=== PATIENT | male | born 1975 | race Caucasian/White ===

== ENCOUNTER 2020-11-21 07:00 | Outpatient (NON) | payer BC, SELFPAY ==
[2020-11-21 18:46] LABS: SARS-CoV-2 RNA PCR Positive
== END 2020-11-21 07:01 ==
PROVIDERS: PCP Internal Medicine; Visit Provider Internal Medicine
DX: U07.1 COVID-19 (principal); R68.89 Other general symptoms and signs
CPT/HCPCS: C9803; U0003; U0005

== ENCOUNTER 2021-02-23 07:19 | Outpatient (CLI) | payer BC, SELFPAY ==
--- NOTE | ~2021-02-23 | XR_ITS ---
XR knee LT 3V DATE: 02/23/2021 07:44 INDICATION: Chronic medial left knee pain TECHNIQUE: AP, lateral and sunrise views COMPARISON: None FINDINGS: There is slight periarticular spurring of the patella. Knee joint spaces are preserved. No fracture or dislocation or joint effusion. No periosteal reaction or bone destruction, radial opaq ue intra-articular loose body or chondrocalcinosis. IMPRESSION: Slight periarticular spurring of the patella consistent with minimal patellofemoral osteo arthritis Reviewed, dictated and finalized at location A. IMPRESSION: Slight periarticular spurring of the patella consistent with minima l patellofemoral osteoarthritis
--- NOTE | ~2021-02-23 | MR_ITS ---
EXAMINATION: MR knee RT wo con DATE: 02/23/2021 09:13 INDICATION: Right knee pain TECHNIQUE: Magnetic resonance imaging (MRI) of the right knee was performed without intravenous contr ast. Sequences included coronal PD-weighted FSE, coronal PD-weighted FS FSE, sagittal T2-weighted FS E, sagittal PD-weighted FS FSE and axial PD weighted fat saturated FSE. COMPARISON: None. FINDINGS: Medial compartment: Medial meniscus is normal. Articular cartilage is normal. Lateral compartment: Lateral meniscus is normal. Articular cartilage is normal. Patellofemoral compartment: Articular cartilage is normal. Ligaments and tendons: Anterior and posterior cruciate ligaments are normal. The medial collateral ligament and fibular enrique ateral ligament complex are normal. The extensor mechanism is normal. The visualized medial and later al hamstring tendons as well as the iliotibial band are normal. Fluid: Physiologic amount of fluid in the joint space. No loose osteochondral bodies identified. Mild edema in the subcutaneous fat anterior to the patella and patellar tendon without discrete bursal fluid col lection. Osseous/other: No fracture. A couple small low signal intensity bone islands at the lateral femoral condyle. 5 mm le oz also at the lateral femoral condyle with lobular margins and isointense to cartilage most consis tent with a small enchondroma. Otherwise normal marrow signal. IMPRESSION: 1. No internal derangement with normal menisci, cartilage and stabilizing ligaments of the knee. 2. Nonspecific prepatellar edema without discrete bursal fluid collection. Reviewed, dictated and finalized at location A. IMPRESSION: 1. No internal derangement with normal menisci, cartilage and stabilizing ligam ents of the knee. 2. Nonspecific prepatellar edema without discrete bursal fluid collection.
== END 2021-02-23 07:20 | disposition home or self-care (01) ==
PROVIDERS: PCP Family Medicine; Visit Provider Physician Assistant Medical
DX: M25.562 Pain in left knee (principal); M25.561 Pain in right knee; G89.29 Other chronic pain
CPT/HCPCS: 73562; 73721

== ENCOUNTER 2021-03-03 13:02 | Outpatient (CLI) | payer BC, SELFPAY ==
--- NOTE | 2021-03-03 15:00 | NEURO_ITS ---
Impression: # Complains of pain in right forearm. # Right Carpal Tunnel Syndrome. # Evolving left Carpal Tunnel Syndrome. # No ulnar neuropathy. # Normal needle/EMG exam. Nerve Conduction Studies Anti Sensory Summary Table Stim Site NR Peak (ms) P-T Amp (?V) Site1 Site2 Delta-P (ms) Dist (cm) Odilon (m/s) Left Median Anti Sensory (2-3nd Digit) Wrist 3.4 42.9 Wrist 2-3nd Digit 3.4 14.0 41 Wrist 3.6 20.2 Wrist 2-3nd Digit 3.4 14.0 41 Right Median Anti Sensory (2-3nd Digit) Wrist 3.8 15.5 Wrist 2-3nd Digit 3.8 14.0 37 Wrist 3.8 20.8 Wrist 2-3nd Digit 3.8 14.0 37 Left Radial Anti Sensory (Base 1st Digit) Wrist 2.1 14.2 Wrist Base 1st Digit 2.1 0.0 Right Radial Anti Sensory (Base 1st Digit) Wrist 3.0 13.7 Wrist Base 1st Digit 3.0 0.0 Left Ulnar Anti Sensory (5th Digit) Wrist 3.1 25.6 Wrist 5th Digit 3.1 14.0 45 Right Ulnar Anti Sensory (5th Digit) Wrist 2.8 24.2 Wrist 5th Digit 2.8 14.0 50 Motor Summary Table Stim Site NR Onset (ms) O-P Amp (mV) Site1 Site2 Delta-0 (ms) Dist (cm) Odilon (m/s) Left Median Motor (Abd Poll Brev) Wrist 3.9 2.9 Elbow Wrist 5.3 31.0 58 Elbow 9.2 2.6 Right Median Motor (Abd Poll Brev) Wrist 4.3 1.6 Elbow Wrist 5.4 31.0 57 Elbow 9.7 3.3 Left Ulnar Motor (Abd Dig Minimi) Wrist 2.5 4.7 A Elbow Wrist 5.2 30.0 58 A Elbow 7.7 4.3 Right Ulnar Motor (Abd Dig Minimi) Wrist 2.9 4.0 A Elbow Wrist 5.7 33.0 58 A Elbow 8.6 3.3 F Wave Studies NR F-Lat (ms) L-R F-Lat (ms) Left Median (Mrkrs) (Abd Poll Brev) 29.84 1.27 Right Median (Mrkrs) (Abd Poll Brev) 31.11 1.27 Left Ulnar (Mrkrs) (Abd Dig Min) 30.67 0.58 Right Ulnar (Mrkrs) (Abd Dig Min) 31.25 0.58 EMG Side Muscle Nerve Root Ins Act Fibs Amp Dur Recrt Comment Right 1stDorInt Ulnar C8-T1 Nml Nml Nml Nml Nml Right Ext Indicis Radial (Post Int) C7-8 Nml Nml Nml Nml Nml Right Ext Digitorum Radial (Post Int) C7-8 Nml Nml Nml Nml Nml Right BrachioRad Radial C5-6 Nml Nml Nml Nml Nml Right PronatorTeres Median C6-7 Nml Nml Nml Nml Nml Right Abd Poll Brev Median C8-T1 Nml Nml Nml Nml Nml Left 1stDorInt Ulnar C8-T1 Nml Nml Nml Nml Nml Left Ext Indicis Radial (Post Int) C7-8 Nml Nml Nml Nml Nml Left Ext Digitorum Radial (Post Int) C7-8 Nml Nml Nml Nml Nml Left BrachioRad Radial C5-6 Nml Nml Nml Nml Nml Left PronatorTeres Median C6-7 Nml Nml Nml Nml Nml Left Abd Poll Brev Median C8-T1 Nml Nml Nml Nml Nml MTDD
== END 2021-03-03 13:03 | disposition home or self-care (01) ==
PROVIDERS: PCP Family Medicine; Visit Provider Physician Assistant Medical
DX: R20.2 Paresthesia of skin (principal); G56.03 Carpal tunnel syndrome, bilateral upper limbs
CPT/HCPCS: 95886; 95911

== ENCOUNTER 2022-10-17 12:26 | Outpatient (CLI) | payer BC, SELFPAY ==
--- NOTE | 2022-10-17 13:03 | ECG_ITS ---
Measurements Intervals [place] Rate: 78 P: 59 GA: 199 QRS: -17 QRSD: 106 T: 47 QT: 363 QTc: 416 Interpretive Statements SINUS RHYTHM BORDERLINE LEFTWARD AXIS OTHERWISE UNREMARKABLE ECG NO PREVIOUS ECG AVAILABLE FOR COMPARISON Electronically Signed On 10-17-2022 15:15:44 [employer]UR[employer] PROCESS SUPERVISOR by Shawn Torres M.D.
[2022-10-17 13:07] LABS: Anion Gap 4 mmol/L (8-16); Blood Urea Nitrogen 13 mg/dL (9-20); Calcium 9.1 mg/dL (8.4-10.2); Carbon Dioxide 33 mmol/L (22-30); Chloride 100 mmol/L (98-107); Estimated Glomerular Filt Rate > 60; Glucose 102 mg/dL (65-110); Potassium 3.7 mmol/L (3.4-5.0); Sodium 137 mmol/L (137-145)
== END 2022-10-17 12:27 | disposition home or self-care (01) ==
LOC: ANHLAB 12:30
PROVIDERS: PCP Family Medicine; Visit Provider Nurse Practitioner Family
DX: R80.9 Proteinuria, unspecified (principal); I10 Essential (primary) hypertension
CPT/HCPCS: 36415; 80048; 93005

== ENCOUNTER 2022-10-24 03:08 | Day surgery (SDC) | payer BC, SELFPAY ==
[2022-10-12 17:44] VITALS: BMI 31.0
--- NOTE | 2022-10-12 18:11 | PC.NURSE ---
Report to the Outpatient Waiting Room, entrance under the green pavilion located off [facility], at 0830 on 10-24-22. Planned Procedure Time: 1030. Time changes happen often and if your time is changed the preop area will call you the afternoon before. - You and your visitor will be asked to self-screen and do not enter if you have any COVID symptoms. - Only one visitor is requested with a max of two and NO children visitors are allowed at this time. - The patient visitor may be requested to leave or wait in car when not with patient due to distancing restrictions. - A mask is optional within the hospital. Patients may have clear liquids (water, carbonated beverages, clear teas, apple juice) until 3 hours prior to surgery with a maximum of 20 ounces. 0730 - No food from midnight until time of surgery - Infants may have breast milk until 4 hours before surgery, infant formula 6 hours prior to surgery. - Children will be allowed to drink immediately following surgery. If applicable, please bring a bottle or sippy cup to assist with drinking. Juice, water, soda, and popsicles are readily available. For infants on formula, please bring formula the day of surgery. Pacifiers are allowed. Take the following medications with a SIP of water the morning of surgery: None Medications to discontinue per physician: vitamins and supplements Date to take last dose: 10-21-22 Please no make-up, nail ugandan, hairspray, perfume, deodorant, or body powder the day of surgery. No jewelry (including any body piercings) or valuables the day of surgery, leave them at home. Please take a shower or bath the night before, or the morning of, surgery with an antibacterial soap. Wear comfortable, loose fitting clothing. Children are encouraged to wear pajamas. - Jewelry must be removed prior to entering the operating room. Rings and piercings that are not removed may be cut off. - The hospital will not accept responsibility for valuables. - Please leave all valuables, including medications, at home the day of surgery. If you are going home after surgery, a licensed subway train driver must drive you home. - NO public transportation without another adult if you receive anesthesia. - We recommend that an adult stay with you for 24 hours following discharge. - We also recommend that you do not drive, make important decision, drink alcoholic beverages, or take any drugs that were not prescribed by your health care provider for at least 24 hours after your discharge time. For Pediatric surgeries, we recommend two adults accompany the child home. Follow any additional instructions given to you from your surgeon. If you or anyone in your household have experienced Covid symptoms in the past week, please notify your surgeon or the nurse liaison at the phone number below for possible testing. Telephone instructions given to Roldan Hoff and asked if any additional questions and then verbalized understanding. Patient advised to call surgeon office or pre surgery nurse liaison [phone] if any additional questions.
[2022-10-24 10:00] VITALS: BP 157/97; PULSE 61; RESP 14; TEMP 36.3; O2SAT 100
[2022-10-24 10:10] VITALS: BMI 31.1
--- NOTE | 2022-10-24 10:44 | P.PNAN_ITS ---
Anes - Initial Pre Proc Eval Procedure: Operation Date: 10/24/22 12:00 Proposed Procedures p Right Carpal and Cubital Tunnel Release, - Eddie Galvan MD s Possible Right Ulnar Nerve Transposition - Eddie Galvan MD Date/Time: 10/24/22 10:44 Surgeon: Eddie Galvan MD Pre Op Diagnosis: right carpal and cubital tunnel syndrome Patient Data Age: 46 Gender: M Height: 1.93 m Weight: 116 kg Allergies Allergy/AdvReac Type Severity Reaction Status Date / Time No Known Allergies Allergy Verified 10/24/22 10:09 Home Medications Medication Instructions Recorded Confirmed Type rosuvastatin 20 mg tablet See Rx Instructions .Route 05/27/22 10/19/22 Rx .COMPLEX #90 tabs lisinopril 30 mg tablet 30 mg PO DAILY #90 tabs 07/22/22 10/24/22 Rx multivit with minerals-iron 18 1 tablet PO DAILY 10/12/22 10/24/22 History mg-folic ac 400 mcg-vit K 25 mcg tablet (Adults Multivitamin) Patient hx anesthesia problems: none Family hx anesthesia problems: post op nausea/vomiting Results Review: All pre-operative results and documents have been reviewed as part of the pre- operative evaluation. [facility] Past Medical History Medical History Adult BMI 32.0-32.9 kg/sq m BMI 31.0-31.9,adult Carpal tunnel syndrome, right CTS (carpal tunnel syndrome) Cubital tunnel syndrome on right Shingles (herpes zoster) polyneuropathy Ulnar neuritis Family History Family History Father Diabetes mellitus Mother Hypertension Breast cancer Thyroid activity decreased Cholecystectomy planned Sibling No problems noted. 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 Gender identity (if verbalized by the patient): Male Spiritual care concerns: No Anes - Eval Final PreProcedure Day of Procedure 10/24/22 10:44 Patient weight: obese Heart: regular rate and rhythm Lungs: clear to auscultation Airway: Mallampati scale class II Neurological: alert and oriented Last oral intake: >/= 8 hours ASA classification: III Emergent: no Anesthetic plan: proceed Anesthesia type and monitoring: general LMA and standard monitoring Results Review: All pre-operative results and documents have been reviewed as part of the pre- operative evaluation. Informed Consent: The patient's anesthetic plan and its attendant risks and benefits were discussed with the patient/family/POA. Questions were solicited and answers provided to the satisfaction of the patient/family/POA.
--- NOTE | 2022-10-24 11:03 | WPDHPUPDATE1 ---
History and Physical Update Update Date/Time: 10/24/22 11:03 History and Physical has been reviewed, including an updated exam of the patient. There are NO changes in the patient's condition. Risks, benefits, and alternatives have been discussed and questions answered. Patient agrees to proceed with procedure.
[2022-10-24] MEDS: ACETAMINOPHEN 500 MG TABLET 1000 MG PO (11:05)
[2022-10-24] MEDS: LACTATED RINGERS 1,000 ML 30 ML IV CONT (11:25)
[2022-10-24] MEDS: KETOROLAC 15 MG/ML VIAL (*BKC) IV PUSH (11:27)
[2022-10-24] MEDS: ceFAZolin 2 GM/D5W 50 ML 2 GM/50 ML BAG IVPB (11:43)
[2022-10-24] MEDS: LIDOCAINE HCL 1% PF 30 ML VIAL INFILTRATE (12:11)
[2022-10-24 12:50] VITALS: BP 132/85; PULSE 64; RESP 14; TEMP 36.1; O2SAT 100
[2022-10-24 13:05] VITALS: BP 152/96; PULSE 64; RESP 17; O2SAT 100
--- NOTE | 2022-10-24 13:13 | P.OP_ITS ---
Procedure Note - Detailed Date of Procedure 10/24/22 Pre-op Diagnosis 1. right carpal tunnel syndrome 2. right cubital tunnel syndrome Post-op Diagnosis Same Procedure Performed right carpal and cubital tunnel releases Surgeon Eddie Galvan MD Environmental Associate Courtney Nunez Anesthesia General Description of Procedure The patient was identified and proper sites identified. He was taken to the operating room and transferred to the OR table placing him supine taking care to pad his torso and extremities. After general anesthetic induction and intubation, a nonsterile tourniquet was placed high in the right arm. Right upper extremity was prepped and draped in usual sterile fashion. The extremity was exsanguinated and the tourniquet was inflated to 250 millimeters of mercury remaining up for 37 minutes. Several cc of 1% plain lidocaine was infiltrated in subcutaneous tissue over the cubital tunnel. A curvilinear incision was made over the ulnar nerve as it coursed behind the elbow. Subcutaneous tissue sharply dissected down to the cubital tunnel retinaculum. There was an ree gated lipoma overlying this which was excised. The ulnar nerve was identified and released. There was quite a bit of some scarring tissue noted compressing the nerve. Once this was released the nerve resumed a normal caliber. The elbow was taken through range of motion with no instability of the nerve appreciated. Wound was irrigated with sterile saline. Skin edges reapproximated with 3-0 V lock and tissue adhesive. Attention was then turned to the wrist. Several cc of 2% lidocaine and epinephrine solution was infiltrated in the subcutaneous tissue over the transverse carpal ligament. Longitudinal incision was made over the ulnar aspect the transverse carpal ligament. Subcutaneous tissue sharply dissected down to the transverse carpal ligament which was then divided longitudinally in line with the incision released the contents of the carpal canal. Care was taken to protect neurovascular structures throughout the procedure. This wound was irrigated as well with sterile saline. Skin edges reapproximated with to the wrist and elbow. Tourniquet was released. Patient tolerated the procedure well. He was awakened, extubated taken recovery area in stable condition with no known intraoperative complications. Estimated blood loss was negligible. He received perioperative antibiotics. Estimated Blood Loss 1 Tourniquet Time 37 Drains No Packing No Pathology None sent Complications No immediate complications Condition Stable Disposition PACU [facility] Billing Surgery - Charge Forward: Surgery Billing ([id number], [id number])
[2022-10-24 13:21] VITALS: BP 148/75; PULSE 68; RESP 16; O2SAT 100
[2022-10-24 13:24] VITALS: BP 141/90; PULSE 66; RESP 16
[2022-10-24 13:55] VITALS: BP 146/88; PULSE 61; RESP 16
--- NOTE | 2022-10-24 14:34 | SUR.PHASEII ---
1415 PT MEETS ANESTHESIA DISCHARGE CRITERIA. PT DRESSED AND WAITING ON SPOUSE FOR A RIDE HOME.
== END 2022-10-24 14:30 | disposition home or self-care (01) ==
PROVIDERS: PCP Family Medicine; Visit Provider Orthopaedic Surgery
PROC: (CPT 64721; principal; 2022-10-24 12:00)
PROC: (CPT 64721; 2022-10-24 12:00)
DX: G56.01 Carpal tunnel syndrome, right upper limb (principal); G56.21 Lesion of ulnar nerve, right upper limb; F17.210 Nicotine dependence, cigarettes, uncomplicated; E66.9 Obesity, unspecified; Z68.31 Body mass index [BMI] 31.0-31.9, adult
CPT/HCPCS: 64721; 64718; A4565; A9270; J0690; J1100; J1885; J2250; J2405; J2704; J3010; J7120

== ENCOUNTER 2023-08-05 21:41 | Emergency (ER) | payer BC, SELFPAY ==
[2023-08-05 21:47] VITALS: BP 158/107; PULSE 73; RESP 20; TEMP 36.7; O2SAT 97
--- NOTE | 2023-08-06 00:25 | PC.NURSE ---
Pt approached triage desk and inquired about wait time. States he is going home. Ambulated out of ED with steady gait, in no obvious distress.
== END 2023-08-06 00:25 | disposition left against medical advice (07) ==
LOC: ANHED 08-06 00:30
PROVIDERS: PCP Family Medicine
DX: S05.91XA Unspecified injury of right eye and orbit, initial encounter (principal)
CPT/HCPCS: 99199

== ENCOUNTER → 2023-08-10 10:23 | Outpatient (CLI) | payer BC, SELFPAY ==
--- NOTE | ~2023-08-10 | XR_ITS ---
XR chest 2V DATE: 08/10/2023 10:36 INDICATION: Infectious exposure TECHNIQUE: 2 views COMPARISON: None FINDINGS: Normal heart size. No hilar or mediastinal enlargement. No pulmonary infiltrate or consolid ation, pleural effusion or pulmonary vascular congestion or pneumothorax is detected. Included skelet al structures are unremarkable other than mild degenerative spurring of the thoracic spine. IMPRESSION: No active cardiopulmonary disease Reviewed, dictated and finalized at location L.
== END ==
PROVIDERS: PCP Nurse Practitioner Family; Visit Provider Nurse Practitioner Family
DX: Z77.090 Contact with and (suspected) exposure to asbestos (principal); Z72.0 Tobacco use
CPT/HCPCS: 71046

== ENCOUNTER 2024-09-07 09:00 | Emergency (ER) | payer BC, SELFPAY ==
--- NOTE | ~2024-09-07 | XR_ITS ---
EXAMINATION: XR chest 2V DATE: 09/07/2024 09:28 INDICATION: Shortness of breath and 10 days of cough TECHNIQUE: PA and lateral views of the chest were obtained. COMPARISON: Chest radiograph dated 08/10/2023 FINDINGS: The lungs are clear with no focal airspace opacities, pulmonary edema, pleural effusion or pneumothor ax. The cardiomediastinal silhouette is normal. Mild thoracic spondylosis. IMPRESSION: 1. No acute cardiopulmonary disease. Reviewed, dictated and finalized at location A.
[2024-09-07 09:09] VITALS: BP 149/92; PULSE 76; RESP 18; TEMP 36.2; O2SAT 99
--- NOTE | 2024-09-07 09:20 | ED_ITS ---
HPI - URI/Sore Throat General Chief Complaint: Upper Respiratory Infection Stated Complaint: respiratory issues Time Seen by Provider: 09/07/24 09:15 Source: patient and RN notes reviewed Mode of arrival: ambulatory Limitations: no limitations History of Present Illness HPI Narrative: Patient presents today with productive cough, occasional shortness of breath with exertion, sore throat due to coughing episodes, rhinorrhea in the mornings. He has tried Mucinex without much relief. Denies fever. No history of asthma or COPD. He does smoke occasionally. Related Data Home Medications Medication Instructions Recorded Confirmed meloxicam 15 mg tablet 15 mg PO DAILY 09/07/24 09/07/24 Allergies Allergy/AdvReac Type Severity Reaction Status Date / Time No Known Allergies Allergy Verified 09/07/24 09:02 Review of Systems Review of Systems: CONSTITUTIONAL: Denies body aches, fever, chills, or sweats. EYES: Denies visual changes, redness, or discharge. ENT: Denies congestion, or otalgia.+ sore throat, rhinorrhea CARDIOVASCULAR: Denies chest pain, palpitations, or edema. RESPIRATORY: + cough, shortness of breath with exertion. GASTROINTESTINAL: Denies abdominal pain, nausea, vomiting, or diarrhea. GENITOURINARY: Denies dysuria or hematuria. SKIN: Denies rash, itching, or wounds. MUSCULOSKELETAL: Denies back pain, joint pain, or myalgia. NEUROLOGIC: Denies headache, numbness, tingling, or weakness. PSYCH: Denies depression or anxiety. [facility] Past Medical History Medical History BMI 31.0-31.9,adult CTS (carpal tunnel syndrome) Right lateral epicondylitis Screening for diabetes mellitus Screening for prostate cancer Shingles (herpes zoster) polyneuropathy Ulnar neuritis Surgical History Surgical History Cubital tunnel syndrome on right right ulnar nerve decompression October 24, 2022 Right carpal tunnel syndrome right carpal tunnel release October 24, 2022 Family History Family History Father Diabetes mellitus Mother Hypertension Breast cancer Thyroid activity decreased Cholecystectomy planned Sibling No problems noted. Other Family history of malignant neoplasm of breast Social History Social History Smoking packs per day: 0.25 Smoking cigarettes per day: 5.0 Years smoked: 30 Smoking pack-years: 7.50 Smoking status: Current some day smoker Tobacco type: cigarettes Second hand tobacco smoke exposure: No Alcohol intake: current Drinks per week: 18 Substance use: never Substance use type: does not use Current Housing: Decline to Answer Concerned About Future Housing: Decline to Answer Difficulty Paying Gas/Electric Bills: Decline to Answer Difficulty Paying for Meds: Decline to Answer Currently Unemployed: Decline to Answer Education: Decline to Answer Difficulty w/ Childcare or Family Care: Decline to Answer Living arrangements: with family Occupation/Education: occupation 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 Gender identity (if verbalized by the patient): Male Spiritual care concerns: No Comments At time of signature, I have reviewed and agree with nursing past medical, surgical, social and family history unless otherwise noted. Please see nursing chart for further information. There is no relevant family history pertinent to the presenting complaint Exam Narrative: GENERAL: Well-appearing, well-nourished, and in no acute distress. HEAD: Normocephalic, atraumatic. EYES: EOMI. No redness or drainage. Conjunctivae normal. ENT: Mucous membranes pink and moist. Nares clear. No rhinorrhea. TMs normal bilaterally. Throat normal. Uvula midline. NECK: Normal AROM. Supple. No lymphadenopathy. CHEST: No respiratory distress. Clear to auscultation. HEART: Regular rate and rhythm. No murmur appreciated. EXTREMITIES: Normal range of motion. No edema. SKIN: Warm, dry, no rash. Capillary refill normal. Normal skin turgor. NEURO: No focal deficits. Alert and oriented x3. Gait steady. PSYCH: Normal affect. No signs of depression or anxiety. Course Course Emergency Course: Patient requested chest x-ray Level of Care: Express Care Visit Vital Signs Vital signs: Vital Signs Temperature 97.2 F L 09/07/24 09:09 Pulse Rate 76 09/07/24 09:09 Respiratory Rate 18 09/07/24 09:09 Blood Pressure 149/92 H 09/07/24 09:09 Pulse Oximetry 99 09/07/24 09:09 Oxygen Delivery Room Air 09/07/24 09:09 Temperature 97.2 F L 09/07/24 09:09 Pulse Rate 76 09/07/24 09:09 Respiratory Rate 18 09/07/24 09:09 Blood Pressure 149/92 H 09/07/24 09:09 Pulse Oximetry 99 09/07/24 09:09 Oxygen Delivery Room Air 09/07/24 09:09 Reviewed MDM - URI/Sore Throat MDM Narrative Medical decision making narrative: Patient's chest x-ray is negative for pneumonia. Prescription for 5 days of prednisone sent to pharmacy. He declines prescription for Tessalon Perles or an albuterol inhaler. States he has nebulizer treatment with medication at home. Anticipatory guidance given. Differential Diagnosis Differential diagnosis: Likely upper respiratory infection, viral infection, bronchitis and other (Pneumonia) Imaging Data Radiologist's impression: ITS Impressions Chest X-Ray 09/07/24 09:47 IMPRESSION: 1. No acute cardiopulmonary disease. Critical Care Time Critical Care Time Critical Care Time: No Discharge Plan Discharge Clinical Impression: Bronchitis Patient Disposition: Home, Self-Care Condition: Stable Instructions: Acute Bronchitis (ED) Additional Instructions: Your chest x-ray is negative for pneumonia today. Please take the prednisone as prescribed. Take [id number] medication for cough if needed. Follow-up with your PCP next week if symptoms are not improving. Go to the ER immediately if symptoms worsen to include chest pain, shortness of breath, new fever greater than 100.3. Your blood pressure was elevated above 120/80 today at Urgent Care. This puts you above the threshold for follow up. Please schedule a followup visit with your personal physician as soon as possible, for further evaluation and treatment. Even blood pressure exceeding 120/80 may indicate pre-hypertension. Prescriptions: New prednisone 50 mg tablet 50 mg PO DAILY 5 Days Qty: 5 0RF No Action meloxicam 15 mg tablet 15 mg PO DAILY lisinopril 30 mg tablet See Rx Instructions .ROUTE .COMPLEX Qty: 90 3RF Dose Instruction: TAKE 1 TABLET DAILY Rx Instructions: TAKE 1 TABLET DAILY Follow-up/Referrals: Jayden Galeas MD [Primary Care Provider] - Time of Disposition: 09:56
== END 2024-09-07 10:02 | disposition home or self-care (01) ==
PROVIDERS: Emergency Provider Nurse Practitioner; PCP Family Medicine
DX: J40 Bronchitis, not specified as acute or chronic (principal); F17.210 Nicotine dependence, cigarettes, uncomplicated
CPT/HCPCS: 71046; 99213; G0463

== ENCOUNTER 2024-12-23 15:49 | Emergency (ER) | payer BC, SELFPAY ==
[2024-12-23 16:21] VITALS: BP 173/109; PULSE 80; RESP 18; TEMP 36.5; O2SAT 100
--- NOTE | 2024-12-23 16:36 | ED_ITS ---
HPI - URI/Sore Throat General Chief Complaint: Upper Respiratory Infection Stated Complaint: sinus infection Source: patient and RN notes reviewed Mode of arrival: ambulatory Limitations: no limitations History of Present Illness HPI Narrative: 41-year-old male presented for complaint of sore throat for almost 1 week. Endorses at onset he has had nasal congestion, headache, and ear pressure. Not taking anything for symptoms. Denies shortness of breath, wheezing, nausea, vomiting, diarrhea, fevers or chills. Daily smoker. MD elicited complaint: cough Related Data Home Medications ?Medication ?Instructions ?Recorded ?Confirmed ?Last Taken ?Type meloxicam 15 mg tablet 15 mg PO DAILY 09/07/24 11/20/24 Unknown History Allergies Allergy/AdvReac Type Severity Reaction Status Date / Time lisinopril AdvReac Intermediate Cough Verified 12/23/24 16:37 Review of Systems Review of Systems: per HPI [facility] Past Medical History Medical History Right lateral epicondylitis BMI 31.0-31.9,adult Ulnar neuritis CTS (carpal tunnel syndrome) Screening for diabetes mellitus Screening for prostate cancer Shingles (herpes zoster) polyneuropathy Surgical History Surgical History Right carpal tunnel syndrome right carpal tunnel release October 24, 2022 Cubital tunnel syndrome on right right ulnar nerve decompression October 24, 2022 Family History Family History Father Diabetes mellitus Mother Hypertension Breast cancer Thyroid activity decreased Cholecystectomy planned Sibling No problems noted. Other Family history of malignant neoplasm of breast Social History Social History Smoking packs per day: 0.25 Smoking cigarettes per day: 5.0 Years smoked: 30 Smoking pack-years: 7.50 Smoking status: Current some day smoker Tobacco type: cigarettes Second hand tobacco smoke exposure: No Alcohol intake: current Drinks per week: 18 Substance use: never Substance use type: does not use Current Housing: Decline to Answer Concerned About Future Housing: Decline to Answer Difficulty Paying Gas/Electric Bills: Decline to Answer Difficulty Paying for Meds: Decline to Answer Currently Unemployed: Decline to Answer Education: Decline to Answer Difficulty w/ Childcare or Family Care: Decline to Answer Living arrangements: with family Occupation/Education: occupation 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 Gender identity (if verbalized by the patient): Male Spiritual care concerns: No Exam Narrative: GENERAL: mildly Ill-appearing, nontoxic no acute distress. EYES: conjunctivae clear ENT: Mucous membranes moist. TM pearly carlisle with dull light reflex bilaterally; no tragal tenderness. Oropharynx erythematous with approx 0.5cm white lesion to left palatine arch c/w aphthous ulcer, tonsils absent., no drooling, no hoarseness, no trismus, uvula midline. No tripod positioning, muffled voice, soft palate or pharyngeal wall bulging NECK: Supple. No lymphadenopathy CHEST: Clear to auscultation, breath sounds equal. No wheezing, rhonchi, rales, or stridor. No respiratory distress, speaks in full sentences. HEART: Regular rate and rhythm. SKIN: Warm, dry, no rash. NEURO: Alert and oriented x3. Course Course Emergency Course: Patient is aware of diagnosis, understands and agrees to treatment plan. Anticipatory guidance given. Patient agrees to follow-up as directed and is aware of reasons to seek care at the emergency department. Portions of this record may have been created with voice recognition software Level of Care: Express Care Visit Vital Signs Vital signs: Vital Signs Temperature 97.7 F 12/23/24 16:21 Pulse Rate 80 12/23/24 16:21 Respiratory Rate 18 12/23/24 16:21 Blood Pressure 173/109 H 12/23/24 16:21 Pulse Oximetry 100 12/23/24 16:21 Oxygen Delivery Room Air 12/23/24 16:21 Temperature 97.7 F 12/23/24 16:21 Pulse Rate 80 12/23/24 16:21 Respiratory Rate 18 12/23/24 16:21 Blood Pressure 173/109 H 12/23/24 16:21 Pulse Oximetry 100 12/23/24 16:21 Oxygen Delivery Room Air 12/23/24 16:21 reviewed MDM - URI/Sore Throat MDM Narrative Medical decision making narrative: Neg strep result reviewed with pt. Will treat for aphthous ulcer and sinus infection. Advise supportive treatments. Patient is appropriate for outpatient treatment and follow-up. Differential Diagnosis Differential diagnosis: Likely upper respiratory infection, otitis media, sinusitis, viral infection and pharyngitis Discharge Plan Discharge Clinical Impression: Aphthous ulcer Patient Disposition: Home, Self-Care Condition: Stable Instructions: Antibiotic Form, Esophagitis (ED) Additional Instructions: Your blood pressure reading was elevated (above 120/80) please follow-up with your primary care provider for further evaluation and management. If you develop worsening Blood Pressure symptoms, (headache, vision changes, dizziness, vomiting, chest pain, etc) go to the ER. Call 911. Tylenol every 8 hours as needed for pain/fever Avoid foods that irritate your mouth. These may include nuts, chips, pretzels, certain spices, salty foods and acidic fruits, such as pineapple, grapefruit and oranges. Regular brushing after meals and flossing once a day can keep your mouth clean and free of foods that might trigger a sore. Use a soft brush to help prevent irritation to delicate mouth tissues, and avoid toothpastes and mouth rinses that contain sodium lauryl sulfate Soft foods, cool liquids, warm tea. Gargle with warm saltwater twice a day. Chloraseptic spray and throat lozenges. Rest and stay hydrated. dexamethasone elixir as directed - swish and spit three to four times daily. It is important to keep the medication in the mouth for five minutes prior to spitting it out. Do not rinse afterward and avoid eating or drinking for 30 minutes. Consult your doctor if you experience: ? Unusually large canker sores ? Recurring sores, with new ones developing before old ones heal, or frequent outbreaks ? Persistent sores, lasting two weeks or more ? Sores that extend into the lips themselves ? Pain that you can't control with self-care measures ? Extreme difficulty eating or drinking ? High fever along with canker sores --Follow up with your PCP --Go to the ER immediately if you cannot swallow your saliva, trouble breathing/wheezing, throat swelling, pain is persistent and severe Rapid strep swab was negative today if symptoms are due to a viral illness, it is not treated with antibiotics. Viral symptoms can be present for up to 10-14 days. Patient Language: Fijian Prescriptions: New dexamethasone 0.5 mg/5 mL elixir 0.5 mg PO QID 5 Days Qty: 100 0RF Rx Instructions: swish and spit three to four times daily. keep the medication in the mouth for five minutes prior to spitting it out. Do not rinse afterward. avoid eating or drinking for 30 minutes. amoxicillin-pot clavulanate 875-125 mg tablet 1 tablet PO Q12H 7 Days Qty: 14 0RF No Action meloxicam 15 mg tablet 15 mg PO DAILY metoprolol succinate 50 mg tablet extended release 24 hr 75 mg PO DAILY Qty: 90 4RF rosuvastatin [Crestor] 20 mg tablet 20 mg PO DAILY Qty: 90 0RF Follow-up/Referrals: Delfino Gamez MD [Physician] - Jayden Galeas MD [Primary Care Provider] - Time of Disposition: 16:54
[2024-12-23 16:41] LABS: EDCOVIDSCREEN Negative (Negative); EDINFLUASCREEN Negative (Negative); EDINFLUBSCREEN Negative (Negative); EDSTREPNEGPOS1 Negative (Negative)
--- OUTSIDE RECORDS SUMMARY | 2024-12-23 18:13 | XMS_ITS | Clinical Summary ---
Author Organization [facility] Address [address] [place] [id number] Care Team Providers Care Transit Vehicle Inspector Name Role Phone Miscellaneous, Not In File Primary Care Provider Unavailable Allergies No known active allergies Medications meloxicam (MOBIC) 15 mg tablet Take 1 tablet (15 mg total) by mouth daily 05/06/2024 Active lisinopriL (PRINIVIL,ZESTRI L) 30 mg tablet 03/30/2024 Act margret Active Problems Problem Noted Date Diagnosed Date Lateral epicondylitis of left elbow 05/15/2024 Left arm pain 05/15/2024 Surgical History Surgery Date Site/Laterality Comments [place] TONSILLECTOMY PRIMARY/SEC ONDARY <AGE 13 Tonsillectomy - (Added by TW Conv) [place] APPENDECTOMY Appendectomy - (Added by TW Conv) HAND SURGERY Hand Surgery - (Added by TW Conv) Family History Medical History Relation Name Comments Diabetes Other Diabetes [facility] - (Added by TW Conv) Relation Name Status Comments Other Social History Tobacco Use Types Packs/Day Years Used Date Smoking Tobacco: Every Day Smokeless Tobacco: Never Tobacco Cessation:Ready to Q uit: Not Asked; Counseling Given: Not Answered Personal Safety Answer Date Recorded Getting School Help Needed Not on file 04/29 Sex and Gender Information Value Date Recorded Sex Assigned at Not on file 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 Gender Identity Not on file Sexual Orientation Not on file Obstetrics History Last Filed Vital Signs Vital Sign Reading Time Taken Comments Blood Pressure 142/98 11/16/2017 2:34 PM PUMP HOUSE OPERATOR Pulse 88 11/16/2017 2:34 PM PUMP HOUSE OPERATOR Temperature - - Respiratory Rate - - Oxygen Saturation - - Inhaled Oxygen Concentration - - Weight 117.1 kg (258 lb 2.2 oz) 11/16/2017 2:34 PM PUMP HOUSE OPERATOR Height 190.5 cm (6' 3 ) 11/16/2017 2:34 PM PUMP HOUSE OPERATOR Body Mass Index 32.26 11/16/2017 2:34 PM PUMP HOUSE OPERATOR Plan of Treatment Health Maintenance Due Date Last Done Comments Colon Cancer Screening-Colonoscopy 1976 Depression Screening 1976 Hepatitis C Screening 1976 Hepatitis B Screening 1994 Regular Well Visit/Exam 18-64 1994 Pneumococcal vaccine <65 (1 of 2 - PCV) 1995 Influenza Vaccine (#1) 2024 DTaP/Tdap/Td Vaccine (2 - Td or Tdap) 02/23/2034 Insurance Care Teams Transit Vehicle Inspector Relationship Specialty Start Date End Date Miscellaneous, Not In File PCP - General 11/15/17
--- OUTSIDE RECORDS SUMMARY | 2024-12-23 18:13 | XMS_ITS | Referral Summary ---
Author Organization [facility] Address [address] [place] [id number] Care Team Providers Care Bleacher Sulfite Pulp Name Role Phone Miscellaneous, Not In File Primary Care Provider Unavailable Allergies No known active allergies Medications meloxicam (MOBIC) 15 mg tablet Take 1 tablet (15 mg total) by mouth daily 05/06/2024 Active lisinopriL (PRINIVIL,ZESTRI L) 30 mg tablet 03/30/2024 Act margret Active Problems Problem Noted Date Diagnosed Date Lateral epicondylitis of left elbow 05/15/2024 Left arm pain 05/15/2024 Social History Tobacco Use Types Packs/Day Years Used Date Smoking Tobacco: Every Day Smokeless Tobacco: Never Tobacco Cessation:Ready to Q uit: Not Asked; Counseling Given: Not Answered Personal Safety Answer Date Recorded Getting School Help Needed Not on file 04/29 Sex and Gender Information Value Date Recorded Sex Assigned at Not on file 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 Gender Identity Not on file Sexual Orientation Not on file Last Filed Vital Signs Vital Sign Reading Time Taken Comments Blood Pressure 142/98 11/16/2017 2:34 PM NAIL MAKING MACHINE SETTER Pulse 88 11/16/2017 2:34 PM NAIL MAKING MACHINE SETTER Temperature - - Respiratory Rate - - Oxygen Saturation - - Inhaled Oxygen Concentration - - Weight 117.1 kg (258 lb 2.2 oz) 11/16/2017 2:34 PM NAIL MAKING MACHINE SETTER Height 190.5 cm (6' 3 ) 11/16/2017 2:34 PM NAIL MAKING MACHINE SETTER Body Mass Index 32.26 11/16/2017 2:34 PM NAIL MAKING MACHINE SETTER Plan of Treatment Not on file Insurance Care Teams Bleacher Sulfite Pulp Relationship Specialty Start Date End Date Miscellaneous, Not In File PCP - General 11/15/17
== END 2024-12-23 16:55 | disposition home or self-care (01) ==
PROVIDERS: Emergency Provider Nurse Practitioner Family; PCP Family Medicine
DX: K12.0 Recurrent oral aphthae (principal); F17.210 Nicotine dependence, cigarettes, uncomplicated; Z20.822 Contact with and (suspected) exposure to COVID-19
CPT/HCPCS: 87081; 87426; 87804; 87880; 99213; G0463

== ENCOUNTER 2025-09-10 11:31 | Outpatient (CLI) | payer OTHER, SELFPAY ==
--- NOTE | ~2025-09-10 | XR_ITS ---
EXAMINATION: XR hand RT 2V, 09/10/2025 11:35 RIVER GUIDE HISTORY: RT 1ST DIGIT PAIN LOCKING AFTER INJURY IN MAY COMPARISON: No comparisons available. Findings: No acute fracture or malalignment. No significant degenerative changes. Soft tissues unremarkable. Impression: No acute fracture or malalignment. Reviewed, dictated and finalized at location P. R GUIDE Impression: No acute fracture or malalignment.
== END 2025-09-10 11:32 | disposition home or self-care (01) ==
LOC: MICIMG 11:32
PROVIDERS: PCP Family Medicine; Visit Provider Nurse Practitioner Adult Health
DX: S69.91XA Unspecified injury of right wrist, hand and finger(s), initial encounter (principal); X58.XXXA Exposure to other specified factors, initial encounter
CPT/HCPCS: 73120